=== PATIENT | female | born 1970 | race Caucasian/White ===

== ENCOUNTER 2016-12-22 10:21 | Emergency (ER) | payer OTHER ==
[~2016-12-22] VITALS: Ht 165.1 cm; Wt 84.3 kg
[~2016-12-22 10:21] MED LIST: AEROECLIPSE1 EACH MC; ALBUTEROL SULF8.5 GM IH; CLARITIN10 MG PO; FLONASE ALLERG9.9 ML BOTH NARES; IBUPROFEN400 MG PO; METFORMIN HCL500 MG PO; NEXIUM20 MG PO; NOHOMEMEDS; OMEPRAZOLE40 M1 PO; PANTOPRAZOLE SO40 MG PO; PHENERGAN-CODE120 ML PO; PREDNISONE20 MG PO; PRILOSEC OTC20 MG PO; PRILOSEC20 MG PO; PROAIR HFA8.5 GM IH; PROVENTIL,2.5 MG/3 M IH; RANITIDINE HCL150 M1 PO; TESSALON PERLE100 MG PO; TYLENOL REGULA325 MG PO; VENTOLIN HFA18 GM IH; ZOFRAN ODT4 MG PO
[2016-12-22 11:52] LABS: EOSINOPHIL (%) 0.2 % (0-5); EOSINOPHIL COUNT 0.1 K/uL (0-0.3); HEMATOCRIT 41.8 % (36.0-46.0); IMMATURE GRANULOCYTE (%) 0.3 % (0.0-0.7); IMMATURE GRANULOCYTE COUNT 0.6 K/uL; LYMPHOCYTE COUNT 1.8 K/uL (1.0-2.8); MCH 30.6 PG (29.0-34.0); MCHC 35.4 G/DL (30.0-36.0); MCV 86.4 FL (83-99); MEAN PLAT.VOLUME 10.4 uM^3 (9.5-12.4); MONOCYTE (%) 6.8 % (3-12); MONOCYTE COUNT 1.4 K/uL (0-0.8); NEUTROPHIL (%) 83.9 % (45-76); PLATELET COUNT 359 K/uL (156-360); RBC DIS.WIDTH-CV 12.6 % (11.8-14.6); RBC DIS.WIDTH-SD 38.8 % (39-53); RED BLOOD COUNT 4.84 M/uL (3.80-5.20); WHITE BLOOD COUNT 20.3 K/uL (4.1-10.2)
[2016-12-22 11:57] LABS: CHLORIDE 110 mEq/L (99-109); POTASSIUM 3.4 mEq/L (3.7-5.4); SODIUM 141 mEq/L (136-147)
[2016-12-22 11:59] LABS: GLUCOSE 95 mg/dL (70-99)
[2016-12-22 12:00] LABS: ANION GAP 13 MEQ/L (2-14)
[2016-12-22 12:03] LABS: GFR ESTIMATE (CALCULATED) > 59 mL/min/; UREA NITROGEN (BUN) 18 mg/dL (9-23)
[2016-12-22 13:55] LABS: ADD MIUA? NO; BILIRUBIN NEGATIVE; BLOOD NEGATIVE; COLOR YELLOW ((YELLOW)); GLUCOSE (STRIP) NEGATIVE; KETONES NEGATIVE; LEUKOCYTES NEGATIVE; NITRITE NEGATIVE; PROTEIN (STRIP) NEGATIVE; SPECIFIC GRAVITY 1.021 (1.000-1.030); UCUL ADDED? NO; UROBILINOGEN 0.2 MG/DL (0.2-1.0)
[2016-12-22] MEDS ORDERED: DONNATAL1 TABLET PO (14:02)
[2016-12-22] MEDS ORDERED: ZOFRAN ODT4 MG PO (14:02)
[2016-12-22 15:17] VITALS: BP 110/75
== END 2016-12-22 15:19 | disposition home or self-care (01) ==
LOC: EME → EDBD 10:21 → EME 15:19
PROVIDERS: Emergency Medicine
DX: R10.9 Unspecified abdominal pain (principal); R19.7 Diarrhea, unspecified; M32.9 Systemic lupus erythematosus, unspecified; Z87.442 Personal history of urinary calculi
CPT/HCPCS: 80048; 81003; 85025; 93005; 99281; 99285; J1100; J2060; J2405; J3010; J7030

== ENCOUNTER 2017-02-02 21:28 | Emergency (ER) | payer OTHER ==
[~2017-02-02] VITALS: Ht 165.1 cm; Wt 84.5 kg
[~2017-02-02 21:28] MED LIST changes: +DONNATAL1 TABLET PO
[2017-02-02] MEDS ORDERED: PREDNISONE20 MG PO (23:29)
[2017-02-02] MEDS ORDERED: VENTOLIN HFA18 GM IH (23:54)
[2017-02-03 00:01] VITALS: BP 136/78
== END 2017-02-03 00:02 | disposition home or self-care (01) ==
LOC: RME 21:28 → EME 21:28 → RME 02-03 00:02
DX: J45.901 Unspecified asthma with (acute) exacerbation (principal); M32.9 Systemic lupus erythematosus, unspecified; Z87.442 Personal history of urinary calculi; J30.2 Other seasonal allergic rhinitis
CPT/HCPCS: 94640; 99281; 99285; J7512

== ENCOUNTER 2017-04-12 15:16 | Emergency (ER) | payer OTHER ==
[~2017-04-12] VITALS: Ht 165.1 cm; Wt 85.5 kg
[2017-04-12] MEDS ORDERED: NAPROSYN500 MG PO (17:56)
[2017-04-12] MEDS ORDERED: SKELAXIN800 MG PO (17:57)
[2017-04-12 18:14] VITALS: BP 141/79
== END 2017-04-12 18:23 | disposition home or self-care (01) ==
LOC: EME 15:16
DX: S50.11XA Contusion of right forearm, initial encounter (principal); S16.1XXA Strain of muscle, fascia and tendon at neck level, initial encounter; S46.912A Strain of unspecified muscle, fascia and tendon at shoulder and upper arm level, left arm, initial encounter; R07.9 Chest pain, unspecified; M79.671 Pain in right foot; V43.52XA Car driver injured in collision with other type car in traffic accident, initial encounter; W22.11XA Striking against or struck by driver side automobile airbag, initial encounter; Y92.488 Other paved roadways as the place of occurrence of the external cause; Z87.442 Personal history of urinary calculi
CPT/HCPCS: 71020; 72040; 73030; 73090; 73630; 99281; 99284; J3010

== ENCOUNTER 2018-06-01 13:06 | Emergency (ER) | payer OTHER ==
[~2018-06-01] VITALS: Ht 165.1 cm; Wt 87.7 kg
[~2018-06-01 13:06] MED LIST changes: +NAPROSYN500 MG PO; +SKELAXIN800 MG PO
[2018-06-01] MEDS ORDERED: ZOFRAN ODT4 MG PO (15:09)
[2018-06-01] MEDS ORDERED: FIORICET 50-301 EAC1 PO (15:09)
[2018-06-01 15:17] VITALS: BP 112/71
== END 2018-06-01 15:19 | disposition home or self-care (01) ==
LOC: EME 13:06
DX: R51 Headache (principal); K58.9 Irritable bowel syndrome, unspecified; M32.9 Systemic lupus erythematosus, unspecified; F32.9 Major depressive disorder, single episode, unspecified; Z86.79 Personal history of other diseases of the circulatory system; Z87.19 Personal history of other diseases of the digestive system; Z86.69 Personal history of other diseases of the nervous system and sense organs; Z98.51 Tubal ligation status; Z87.442 Personal history of urinary calculi; Z90.49 Acquired absence of other specified parts of digestive tract; J30.2 Other seasonal allergic rhinitis; Z88.5 Allergy status to narcotic agent
CPT/HCPCS: 99281; 99284; J1885